=== PATIENT | female | born 1975 | race Caucasian/White ===

== ENCOUNTER 2016-11-18 14:16 | Emergency (ER) | payer OTHER ==
[~2016-11-18] VITALS: Ht 160 cm; Wt 70.0 kg
[2016-11-18 15:57] LABS: ASPARTATE AMINO TRANSFERASE 14 U/L (15-37); BLOOD UREA NITROGEN 4 mg/dL (7-18)
[2016-11-18 16:39] VITALS: BP 103/68
== END 2016-11-18 17:16 | disposition home or self-care (01) ==
LOC: ED 17:00
DX: R06.4 Hyperventilation (principal); F41.1 Generalized anxiety disorder; F17.200 Nicotine dependence, unspecified, uncomplicated
CPT/HCPCS: 36415; 80053; 82550; 85025; 99284

== ENCOUNTER 2016-11-20 11:48 | Emergency (ER) | payer OTHER ==
[~2016-11-20] VITALS: Ht 160 cm; Wt 68.4 kg
[2016-11-20] MEDS ORDERED: LORazepam 2 MG/ML, 1ML ONE (12:29)
[2016-11-20] MEDS ORDERED: SODIUM CHLORIDE 0.9% 1,000ML IVBOLUS ONE (12:30)
[2016-11-20] MEDS ORDERED: SODIUM CHLORIDE FLUSH 10ML SYR IVF ONE (12:30)
[2016-11-20] MEDS ORDERED: LORazepam 2 MG/ML, 1ML IVPush ONE (12:30)
[2016-11-20 12:54] LABS: ACETAMINOPHEN < 2 mcg/mL (10-30); BLOOD UREA NITROGEN 5 mg/dL (7-18)
[2016-11-20 12:55] LABS: IS PT STATUS REG ER OR PRE ER? YES
[2016-11-20 15:37] VITALS: BP 109/68
== END 2016-11-20 15:39 | disposition home or self-care (01) ==
LOC: ED 13:48
DX: F33.9 Major depressive disorder, recurrent, unspecified (principal); F41.1 Generalized anxiety disorder; Z88.6 Allergy status to analgesic agent; Z88.8 Allergy status to other drugs, medicaments and biological substances
CPT/HCPCS: 36415; 70450; 72125; 80048; 80307; 80329; 82040; 82140; 84484; 85025; 93005; 96361; 96374; 99285; J2060; J7030; G0480

== ENCOUNTER → 2017-06-04 | Outpatient (CLI) | payer OTHER ==
[~2017-06-04] MED LIST: CHOL500015 PO; OMEP-110 PO
[2017-06-04 13:36] LABS: HEMATOCRIT 43.4 % (34.6-47.8); HEMOGLOBIN 14.7 g/dL (11.7-16.4); WHITE BLOOD COUNT 9.6 x10^3/uL (3.4-10)
== END | disposition home or self-care (01) ==
LOC: STAR 12:52
PROVIDERS: ATTEND Obstetrics & Gynecology Female Pelvic Medicine and Reconstructive Surgery
DX: Z01.818 Encounter for other preprocedural examination (principal); N94.6 Dysmenorrhea, unspecified; G43.829 Menstrual migraine, not intractable, without status migrainosus; E34.9 Endocrine disorder, unspecified
CPT/HCPCS: 36415; 84703; 85025

== ENCOUNTER 2017-06-14 05:42 | Day surgery (SDC) | payer OTHER ==
[~2017-06-14] VITALS: Ht 160 cm; Wt 61.2 kg
[2017-06-14] MEDS ORDERED: LACTATED RINGERS 1,000 ML IV SCH ×2 (06:22→08:47)
[2017-06-14 06:25] VITALS: BP 114/81
[2017-06-14 06:42] LABS: HCG UR LOT HCG7030192
[2017-06-14 06:46] LABS: HCG UR OBC PASS
[2017-06-14] MEDS ORDERED: BUPIVACAINE/PF 0.25% ONE (06:47)
[2017-06-14] MEDS ORDERED: EPINEPHRINE 1 MG/ML, 1ML ONE (06:48)
[2017-06-14] MEDS ORDERED: SILVER NITRATE STICK TP ONE (06:57)
[2017-06-14] MEDS ORDERED: FLUORESCEIN SODIUM 500 MG/5 ML ONE (06:57)
[2017-06-14] MEDS ORDERED: LIDOCAINE GEL 2%, 5ML ONE (07:09)
[2017-06-14] MEDS ORDERED: FENTANYL PF 250 MCG/5ML ONE (07:10)
[2017-06-14] MEDS ORDERED: MIDAZOLAM 1 MG/ML, 2ML ONE (07:10)
[2017-06-14] MEDS ORDERED: PROPOFOL 10 MG/ML, 20ML ONE (07:11)
[2017-06-14] MEDS ORDERED: SUCCINYLCHOLINE 20 MG/ML, 10ML ONE (07:11)
[2017-06-14] MEDS ORDERED: NEOSTIGMINE 1 MG/ML, 10ML ONE (07:11)
[2017-06-14] MEDS ORDERED: CEFAZOLIN 1,000 MG ONE (07:11)
[2017-06-14] MEDS ORDERED: ROCURONIUM 10 MG/ML,10ML ONE (07:11)
[2017-06-14] MEDS ORDERED: ONDANSETRON 2MG/ML, 2ML ONE (07:11)
[2017-06-14] MEDS ORDERED: DEXAMETHASONE 4 MG/ML, 1ML ONE (07:11)
[2017-06-14] MEDS ORDERED: GLYCOPYRROLATE 0.2MG/1ML, 5ML ONE (07:11)
[2017-06-14] MEDS ORDERED: LIDOCAINE-MPF 2% ,5ML ONE (07:12)
[2017-06-14] MEDS ORDERED: KETOROLAC 30 MG/1 ML ONE (08:08)
[2017-06-14] MEDS ORDERED: MIDAZOLAM 1 MG/ML, 2ML IV PRN (08:30)
[2017-06-14] MEDS ORDERED: PROMETHAZINE 25 MG/ML, 1ML IV PRN (08:30)
[2017-06-14] MEDS ORDERED: ACETAMINOPHEN 325 MG TABLET PO PRN (08:30)
[2017-06-14] MEDS ORDERED: ALBUTEROL/IPRATROPIUM 2.5MG/0.5MG, 3 ML NPPB PRN (08:30)
[2017-06-14] MEDS ORDERED: ONDANSETRON 2MG/ML, 2ML IVPush PRN (08:30)
[2017-06-14] MEDS ORDERED: LABETALOL 5MG/ML, 20ML IV PRN (08:30)
[2017-06-14] MEDS ORDERED: DIAZEPAM 5 MG/ML, 2ML IVPush PRN (08:30)
[2017-06-14] MEDS ORDERED: hydrALAzine 20 MG/ML, 1ML IV PRN (08:30)
[2017-06-14] MEDS ORDERED: OXYcodone 5 MG/5 ML ORAL.SOL UDC PO PRN (08:30)
[2017-06-14] MEDS ORDERED: LORazepam 2 MG/ML, 1ML IVPush PRN (08:30)
[2017-06-14] MEDS ORDERED: HYDROmorphone 1 MG/ML, 1ML IV PRN (08:30)
[2017-06-14] MEDS ORDERED: PROMETHAZINE 25 MG SUPP PR ONE (09:00)
[2017-06-14] MEDS ORDERED: OXYcodone/APAP 5/325MG TABLET PO PRN (09:00)
[2017-06-14] MEDS ORDERED: ACETAMINOPHEN 650 MG/20.3 ML UDC ONE (09:09)
[2017-06-14] MEDS ORDERED: ACETAMINOPHEN 325 MG TABLET ONE (09:10)
[2017-06-14] MEDS ORDERED: OXYcodone 5 MG/5 ML ORAL.SOL UDC ONE (09:10)
[2017-06-14] MEDS ORDERED: FENTANYL PF 100 MCG/2ML ONE (09:10)
[2017-06-14] MEDS: FENTANYL PF 100 MCG/2ML IV PRN ×4 (09:13→09:38)
== END 2017-06-14 12:30 ==
LOC: OR 05:42 → OUT 12:30
PROVIDERS: ATTEND Obstetrics & Gynecology Female Pelvic Medicine and Reconstructive Surgery
DX: N94.6 Dysmenorrhea, unspecified (principal); F32.81 Premenstrual dysphoric disorder; N83.02 Follicular cyst of left ovary; N83.01 Follicular cyst of right ovary; K21.9 Gastro-esophageal reflux disease without esophagitis; F32.9 Major depressive disorder, single episode, unspecified; Z88.2 Allergy status to sulfonamides; Z98.51 Tubal ligation status; Z88.6 Allergy status to analgesic agent; Z88.1 Allergy status to other antibiotic agents; Z88.8 Allergy status to other drugs, medicaments and biological substances
CPT/HCPCS: 52000; 58552; 81025; 88305; 88307; J0171; J0330; J0690; J1100; J1885; J2250; J2405; J2704; J2710; J3010; J3490; J7120

== ENCOUNTER 2018-11-02 08:19 | Inpatient (IN) | payer OTHER ==
[~2018-11-02] VITALS: Ht 160 cm; Wt 63.8 kg
[~2018-11-02 08:19] MED LIST changes: +BUPIVACAINE/PF 0.5% ONE; +ESTR1TAB15 PO; +MULT1TAB9 PO; +PROG100C16 PO; +l-theanine PO; +melatonin PO
[2018-11-02] MEDS ORDERED: LACTATED RINGERS 1,000 ML IV SCH (08:53)
[2018-11-02] MEDS ORDERED: ACETAMINOPHEN 500 MG TABLET PO ONE (09:30)
[2018-11-02] MEDS ORDERED: FAMOTIDINE 20 MG TABLET PO ONE (09:30)
[2018-11-02] MEDS ORDERED: GABAPENTIN 300 MG CAPSULE PO ONE (09:30)
[2018-11-02] MEDS ORDERED: SCOPOLAMINE PATCH, 1.5MG PATCH.TD72 TD ONE (09:30)
[2018-11-02] MEDS ORDERED: FENTANYL PF 250 MCG/5ML ONE (09:56)
[2018-11-02] MEDS ORDERED: MIDAZOLAM 1 MG/ML, 2ML ONE (09:56)
[2018-11-02] MEDS ORDERED: ONDANSETRON 2MG/ML, 2ML IV PRN (10:30)
[2018-11-02] MEDS ORDERED: OXYcodone 5 MG/5 ML ORAL.SOL UDC PO PRN (10:30)
[2018-11-02] MEDS ORDERED: LABETALOL 5MG/ML, 20ML IV PRN (10:30)
[2018-11-02] MEDS ORDERED: hydrALAzine 20 MG/ML, 1ML IV PRN (10:30)
[2018-11-02] MEDS ORDERED: PROMETHAZINE 25 MG/ML, 1ML IV PRN (10:30)
[2018-11-02] MEDS ORDERED: CEFOTETAN 2 GM ONE (10:33)
[2018-11-02] MEDS ORDERED: DEXAMETHASONE 4 MG/ML, 1ML ONE (10:49)
[2018-11-02] MEDS ORDERED: ONDANSETRON 2MG/ML, 2ML ONE (11:11)
[2018-11-02] MEDS ORDERED: ROCURONIUM 10MG/ML,5ML ONE (11:11)
[2018-11-02] MEDS ORDERED: PROPOFOL 10 MG/ML, 20ML ONE (11:11)
[2018-11-02] MEDS ORDERED: D5%-0.45NACL+KCL 20MEQ 1,000 ML IV SCH (11:51)
[2018-11-02] MEDS ORDERED: ONDANSETRON 2MG/ML, 2ML IVPush PRN (12:00)
[2018-11-02] MEDS ORDERED: NICOTINE GUM 2 MG BC PRN (12:00)
[2018-11-02] MEDS ORDERED: CALCIUM CARBONATE 500 MG TAB.CHEW PO PRN (12:00)
[2018-11-02] MEDS ORDERED: HYDROmorphone 1 MG/ML, 1ML INJ IVPush PRN (12:00)
[2018-11-02] MEDS ORDERED: DIPHENHYDRAMINE 50 MG/ML, 1ML IVPush PRN (12:00)
[2018-11-02] MEDS ORDERED: DEXAMETHASONE 4 MG/ML, 1ML IVPush PRN (12:00)
[2018-11-02] MEDS ORDERED: SCOPOLAMINE PATCH, 1.5MG PATCH.TD72 TD PRN (12:00)
[2018-11-02] MEDS ORDERED: HALOPERIDOL 5 MG/ML IVPush PRN (12:00)
[2018-11-02] MEDS ORDERED: LORazepam 2 MG/ML, 1ML IVPush PRN (12:00)
[2018-11-02] MEDS ORDERED: DIPHENHYDRAMINE 25 MG CAPSULE PO PRN (12:00)
[2018-11-02] MEDS: NICOTINE 21 MG/24 HR PATCH.TD24 TD SCH (12:00)
[2018-11-02] MEDS ORDERED: HYDROmorphone 2 MG/ML, 1ML ONE (12:02)
[2018-11-02] MEDS ORDERED: FENTANYL PF 100 MCG/2ML ONE (12:02)
[2018-11-02] MEDS: FENTANYL PF 100 MCG/2ML IV PRN ×2 (12:02→12:30)
[2018-11-02] MEDS: HYDROmorphone 2 MG/ML, 1ML IVPush PRN ×2 (12:09→12:32)
[2018-11-02 13:58] VITALS: BP 95/56
[2018-11-02] MEDS: ACETAMINOPHEN 100 ML IVPB SCH ×2 (14:12→21:46)
[2018-11-02] MEDS: IBUPROFEN 800 MG TABLET PO SCH ×2 (15:50→20:28)
[2018-11-02] MEDS ORDERED: MELA1TAB8 PO (20:22)
[2018-11-02] MEDS: OXYcodone IR 5MG TABLET PO PRN (20:29)
[2018-11-02] MEDS: MELATONIN 5 MG TABLET PO SCH (21:46)
[2018-11-02] MEDS: PROGESTERONE 100 MG CAPSULE PO SCH (21:46)
[2018-11-02 21:57] VITALS: BP 82/56
[2018-11-03 00:45] VITALS: BP 74/46
[2018-11-03 01:00] VITALS: BP 92/56
[2018-11-03] MEDS: ACETAMINOPHEN 100 ML IVPB SCH ×2 (03:36→10:36)
[2018-11-03 03:37] LABS: BASOPHILS # (AUTO) 0.05 x10^3/uL (0-0.1); BASOPHILS % (AUTO) 0 % (0-1); EOSINOPHILS # (AUTO) 0.06 x10^3/uL (0-0.4); EOSINOPHILS % (AUTO) 1 % (1-7); LYMPHOCYTES # (AUTO) 1.87 x10^3/uL (1-3.4); LYMPHOCYTES % (AUTO) 15 % (22-44); MD NO; MEAN CORPUSCULAR HEMOGLOBIN 31.5 pg (27.0-34.8); MEAN CORPUSCULAR HGB CONC 34.4 g/dL (32.4-35.8); MEAN CORPUSCULAR VOLUME 91.7 fL (80-100); MEAN PLATELET VOLUME 10.2 fL (7.4-10.4); MONOCYTES # (AUTO) 1.15 x10^3/uL (0.2-0.8); MONOCYTES % (AUTO) 9 % (2-9); NEUTROPHILS # (AUTO) 9.27 x10^3/uL (1.8-6.8); NEUTROPHILS % (AUTO) 75 % (42-75); PLATELET COUNT 188 x10^3/uL (130-400); RED BLOOD COUNT 3.98 x10^6/uL (3.82-5.3); RED CELL DISTRIBUTION WIDTH 12.8 % (9.6-15.2)
[2018-11-03 03:45] LABS: ANION GAP 6 mmol/L (5-15); CALCIUM 8.2 mg/dL (8.5-10.1); CHLORIDE 108 mmol/L (98-107)
[2018-11-03 05:37] VITALS: BP 95/60
[2018-11-03] MEDS: OMEPRAZOLE 20 MG CAPSULE.DR PO SCH (05:42)
[2018-11-03] MEDS: ESTRADIOL 1 MG TABLET PO SCH (05:42)
[2018-11-03] MEDS ORDERED: LACTATED RINGERS 1,000 ML IVBOLUS ONE (07:00)
[2018-11-03] MEDS: IBUPROFEN 800 MG TABLET PO SCH ×3 (08:13→21:13)
[2018-11-03] MEDS ORDERED: ESTRADIOL 1 MG TABLET PO SCH (09:00)
[2018-11-03] MEDS ORDERED: ENOXAPARIN 40 MG/0.4 ML SQ SCH (09:00)
[2018-11-03] MEDS ORDERED: PROGESTERONE 100 MG CAPSULE PO SCH (09:00)
[2018-11-03 09:31] VITALS: BP 107/70
[2018-11-03] MEDS: OXYcodone IR 5MG TABLET PO PRN ×3 (10:18→21:14)
[2018-11-03] MEDS: NICOTINE 21 MG/24 HR PATCH.TD24 TD SCH (11:11)
[2018-11-03 13:45] VITALS: BP 100/64
[2018-11-03] MEDS: MELATONIN 5 MG TABLET PO SCH (21:13)
[2018-11-03] MEDS: PROGESTERONE 100 MG CAPSULE PO SCH (21:13)
[2018-11-03 21:20] VITALS: BP 112/71
[2018-11-04 01:53] VITALS: BP 87/58
[2018-11-04 03:59] LABS: BASOPHILS # (AUTO) 0.03 x10^3/uL (0-0.1); BASOPHILS % (AUTO) 0 % (0-1); EOSINOPHILS # (AUTO) 0.14 x10^3/uL (0-0.4); EOSINOPHILS % (AUTO) 2 % (1-7); LYMPHOCYTES # (AUTO) 2.47 x10^3/uL (1-3.4); LYMPHOCYTES % (AUTO) 27 % (22-44); MD NO; MEAN CORPUSCULAR HEMOGLOBIN 31.4 pg (27.0-34.8); MEAN CORPUSCULAR HGB CONC 33.9 g/dL (32.4-35.8); MEAN CORPUSCULAR VOLUME 92.6 fL (80-100); MEAN PLATELET VOLUME 11.1 fL (7.4-10.4); MONOCYTES # (AUTO) 0.79 x10^3/uL (0.2-0.8); MONOCYTES % (AUTO) 9 % (2-9); NEUTROPHILS # (AUTO) 5.73 x10^3/uL (1.8-6.8); NEUTROPHILS % (AUTO) 63 % (42-75); PLATELET COUNT 172 x10^3/uL (130-400); RED BLOOD COUNT 3.79 x10^6/uL (3.82-5.3); RED CELL DISTRIBUTION WIDTH 12.7 % (9.6-15.2)
[2018-11-04 04:03] LABS: ANION GAP 4 mmol/L (5-15); CALCIUM 8.1 mg/dL (8.5-10.1); CHLORIDE 111 mmol/L (98-107)
[2018-11-04 04:05] LABS: CREATININE 0.88 mg/dL (0.55-1.02)
[2018-11-04] MEDS: OMEPRAZOLE 20 MG CAPSULE.DR PO SCH (05:24)
[2018-11-04] MEDS: ESTRADIOL 1 MG TABLET PO SCH (05:25)
[2018-11-04] MEDS: OXYcodone IR 5MG TABLET PO PRN (05:25)
[2018-11-04] MEDS: IBUPROFEN 800 MG TABLET PO SCH (07:34)
[2018-11-04 08:04] VITALS: BP 123/83
[2018-11-04] MEDS ORDERED: TRAM-47 PO (09:22)
== END 2018-11-04 09:45 | disposition home or self-care (01) | DRG 331 ==
LOC: ORIP 08:19 → 4NOR 13:22 → DCLOUNGE 11-04 09:34
PROVIDERS: ADMIT Surgery; ATTEND Surgery
PROC: 3E0T3BZ Introduction of Anesthetic Agent into Peripheral Nerves and Plexi, Percutaneous Approach (ICD-10-PCS; 2018-11-02)
PROC: 0DTF4ZZ Resection of Right Large Intestine, Percutaneous Endoscopic Approach (ICD-10-PCS; principal; 2018-11-02 10:00)
DX: D17.5 Benign lipomatous neoplasm of intra-abdominal organs (principal); D3A.020 Benign carcinoid tumor of the appendix; I95.9 Hypotension, unspecified; Z88.8 Allergy status to other drugs, medicaments and biological substances; Z88.2 Allergy status to sulfonamides; Z88.5 Allergy status to narcotic agent
CPT/HCPCS: 36415; J3490; 80048; 85025; 86850; 86900; 88309; G0378; J0131; J1100; J1170; J2250; J2405; J2704; J3010; J3480; J7120

== ENCOUNTER 2018-12-14 12:20 | Outpatient (CLI) | payer OTHER ==
[~2018-12-14 12:20] MED LIST changes: -BUPIVACAINE/PF 0.5% ONE; +MELA1TAB8 PO; +TRAM-47 PO
== END 2018-12-14 23:59 | disposition home or self-care (01) ==
LOC: CFH 12:20
PROVIDERS: ATTEND Family Medicine
DX: R92.8 Other abnormal and inconclusive findings on diagnostic imaging of breast (principal)
CPT/HCPCS: 76641; 77066; G0279

== ENCOUNTER 2018-12-28 10:15 | Day surgery (SDC) | payer OTHER ==
[~2018-12-28] VITALS: Ht 160 cm; Wt 59.5 kg
[~2018-12-28 10:15] MED LIST changes: +LACT1CAP40 PO; +METR250T18 PO
[2018-12-28] MEDS ORDERED: LACTATED RINGERS 1,000 ML IV SCH (10:36)
[2018-12-28 10:54] VITALS: BP 124/60
[2018-12-28] MEDS ORDERED: GABAPENTIN 300 MG CAPSULE PO ONE (11:00)
[2018-12-28] MEDS ORDERED: SCOPOLAMINE PATCH, 1.5MG PATCH.TD72 TD ONE (11:00)
[2018-12-28] MEDS ORDERED: MIDAZOLAM 1 MG/ML, 2ML ONE (13:22)
[2018-12-28] MEDS ORDERED: PHENYLEPHRINE 10 MG/ML ONE (13:39)
[2018-12-28] MEDS ORDERED: CEFOTETAN 2 GM ONE (13:39)
[2018-12-28] MEDS ORDERED: FENTANYL PF 250 MCG/5ML ONE (13:40)
[2018-12-28] MEDS ORDERED: PROPOFOL 10 MG/ML, 20ML ONE (14:07)
[2018-12-28] MEDS ORDERED: ONDANSETRON 2MG/ML, 2ML ONE (14:07)
[2018-12-28] MEDS ORDERED: ROCURONIUM 10MG/ML,5ML ONE (14:07)
[2018-12-28] MEDS ORDERED: SUGAMMADEX 200 MG/2 ML IVPush ONE (14:07)
[2018-12-28] MEDS ORDERED: DEXAMETHASONE 4 MG/ML, 1ML ONE (14:07)
[2018-12-28] MEDS ORDERED: LIDOCAINE-MPF 2% ,5ML ONE (14:07)
[2018-12-28] MEDS ORDERED: HYDROmorphone 2 MG/ML, 1ML IVPush PRN (14:30)
[2018-12-28] MEDS ORDERED: OXYcodone 5 MG/5 ML ORAL.SOL UDC PO PRN (14:30)
[2018-12-28] MEDS ORDERED: DIPHENHYDRAMINE 50 MG/ML, 1ML IM PRN (14:30)
[2018-12-28] MEDS ORDERED: hydrALAzine 20 MG/ML, 1ML IV PRN (14:30)
[2018-12-28] MEDS ORDERED: HALOPERIDOL 5 MG/ML IV PRN (14:30)
[2018-12-28] MEDS ORDERED: FENTANYL PF 100 MCG/2ML ONE (14:52)
[2018-12-28] MEDS ORDERED: OXYcodone 5 MG/5 ML ORAL.SOL UDC ONE (14:52)
[2018-12-28] MEDS: FENTANYL PF 100 MCG/2ML IV PRN ×2 (14:57→15:25)
[2018-12-28] MEDS ORDERED: KETOROLAC 30 MG/1 ML ONE (15:29)
[2018-12-28] MEDS ORDERED: KETOROLAC 30 MG/1 ML IVPush ONE (15:30)
== END 2018-12-28 17:05 | disposition home or self-care (01) ==
LOC: OUT 10:15
PROVIDERS: ATTEND Surgery
DX: K65.4 Sclerosing mesenteritis (principal); K21.9 Gastro-esophageal reflux disease without esophagitis; D3A.8 Other benign neuroendocrine tumors; F17.210 Nicotine dependence, cigarettes, uncomplicated; Z79.899 Other long term (current) drug therapy; Z88.2 Allergy status to sulfonamides; Z88.8 Allergy status to other drugs, medicaments and biological substances; Z90.49 Acquired absence of other specified parts of digestive tract; Z90.710 Acquired absence of both cervix and uterus; Z98.890 Other specified postprocedural states
CPT/HCPCS: 22903; 64488; 88305; J1100; J1885; J2370; J2405; J2704; J3010; J3490; J7120; J2250

== ENCOUNTER → 2019-06-01 | Outpatient (CLI) | payer OTHER ==
[~2019-06-01] MED LIST changes: +FUROSEMIDE 20 MG/2 ML ONE; +GADOTERATE 10 MMOL/20 ML VIAL ONE
== END | disposition home or self-care (01) ==
LOC: RAD 08:00
PROVIDERS: ATTEND Family Medicine
DX: E34.8 Other specified endocrine disorders (principal); K82.4 Cholesterolosis of gallbladder; Z79.899 Other long term (current) drug therapy; Z98.890 Other specified postprocedural states; F17.200 Nicotine dependence, unspecified, uncomplicated
CPT/HCPCS: 72197; 74183; A9575; J1940